=== PATIENT | male | born 1965 | race Caucasian/White ===

== ENCOUNTER → 2021-08-16 12:02 | Outpatient (BNVA) | payer OTHER, SELFPAY | PROVIDERS: PCP Family Medicine; Visit Provider Family Medicine | DX: F32.A Depression, unspecified (principal); K21.9 Gastro-esophageal reflux disease without esophagitis; E03.9 Hypothyroidism, unspecified; E11.9 Type 2 diabetes mellitus without complications | CPT/HCPCS: 80053; 80061; 83036; 84443; 85025 ==

== ENCOUNTER 2021-10-24 08:02 | Outpatient (CLI) | payer OTHER, SELFPAY ==
--- NOTE | 2021-10-24 08:45 | MR_ITS ---
WS: [id number] MRI CERVICAL SPINE NONCONTRAST HISTORY: Right-sided neck pain and spasm. Pain radiates to RIGHT shoulder. COMPARISON: Cervical radiograph 09/09/2021 Technique: Multiplanar, multisequence noncontrast imaging of the cervical spine. Mild straightening and slight reversal the normal cervical lordosis. C5 retrolisthesis by 2 mm. Disc spaces are very minimally desiccated and narrowed. No fracture or marrow edema. Craniocervical junction, C1 and C2 relationship, odontoid process and soft tissues are normal. C2-C3: Very shallow RIGHT paracentral disc protrusion. C3-C4: Normal. C4-C5: Very slight annular disc bulging with vertebral body osteophytes with mild encroachment upon t he ventral thecal sac. Mild RIGHT foraminal narrowing. Very tiny central disc protrusion. C5-C6: Diffuse annular disc bulging with a moderate LEFT paracentral disc osteophyte with contact and deformity in the LEFT lateral thecal sac and significant narrowing of the LEFT foramen. Small osteop hyte in the RIGHT foramen. C6-C7: Diffuse disc bulge with a central disc osteophyte protrusion. Mild central and bilateral cooper inal stenosis. C7-T1: Normal. Paraspinal soft tissue are normal. MR/MR cervical spin wo con* [id number] IMPRESSION: 1. Moderate LEFT paracentral disc osteophyte at C5-6 contacting the LEFT later al cervical cord with significant encroachment upon the LEFT C6 nerve root. 2. Mild RIGHT foraminal narrowing and small central disc protrusion at C4-5. 3. Very minimal encroachment upon the ventral thecal sac at C4-5 due to disc a nd osteophyte disease. 4. Central and bilateral foraminal disc osteophytes at C6-7 resulting in mild central and bilateral foraminal stenosis. Mild contact on the RIGHT C7 nerve ro ot.
== END 2021-10-24 08:03 | disposition home or self-care (01) ==
LOC: RAD 08:04
PROVIDERS: PCP Family Medicine; Visit Provider Nurse Practitioner Family
DX: M50.30 Other cervical disc degeneration, unspecified cervical region (principal); M25.78 Osteophyte, vertebrae
CPT/HCPCS: 72141

== ENCOUNTER → 2022-01-13 11:04 | Outpatient (BNVA) | payer OTHER, SELFPAY | PROVIDERS: PCP Family Medicine; Visit Provider Nurse Practitioner | DX: R31.9 Hematuria, unspecified (principal) | CPT/HCPCS: 80053; 85025; 87086 ==

== ENCOUNTER → 2023-07-09 12:06 | Outpatient (BNVA) | payer BC, SELFPAY | PROVIDERS: PCP Nurse Practitioner Family; Visit Provider Nurse Practitioner Family | DX: E78.5 Hyperlipidemia, unspecified (principal); E78.1 Pure hyperglyceridemia; E11.9 Type 2 diabetes mellitus without complications | CPT/HCPCS: 80053; 80061; 81003; 83036; 84443; 85025; G0103 ==

== ENCOUNTER 2023-08-02 07:47 | Outpatient (CLI) | payer BC, MEDICAID, SELFPAY ==
--- NOTE | 2023-08-02 08:45 | MR_ITS ---
WS: [id number] MRI RIGHT SHOULDER NONCONTRAST TECHNIQUE: Sagittal T2, coronal T1, T2 and proton density imaging. Axial gradient PDE imaging. CLINICAL INFORMATION: M19.019 - Primary osteoarthritis, unspecified shoulder COMPARISON: None. FINDINGS: Moderate degenerative arthritis AC joint with mild downsloping acromion. Synovial thickening with a s mall amount of fluid and edema. Subacromial spurring. Impingement distal supraspinatus. Mild narrowin g of the subacromial space. Normal infraspinatus. Normal teres minor. Tendinopathy with small intrasubstance tear involving the s ubscapularis distally. Mild medial subluxation of proximal biceps tendon from the bicipital groove. I ncreased signal intra-articular biceps tendon compatible with tendinopathy. Otherwise normal biceps t endon in the bicipital groove. Moderate to advanced degenerative narrowing of the glenohumeral articu lation with mild hypertrophic spurring. Degenerative fraying of the glenoid labrum. IMPRESSION: 1. Moderate to advanced degenerative arthritis AC joint with fluid and edema. Mild downsloping acrom ion with subacromial spurring. Impingement distal supraspinatus. 2. Mild chronic thinning of the supraspinatus. 3. Tendinopathy with intrasubstance tear involving the distal subscapularis. 4. Mild medial subluxation of the proximal biceps tendon with increased signal Intra-articular bicep s tendon compatible with tendinopathy. 5. Biceps tendon otherwise appears intact within the bicipital groove. 6. Moderate degenerative narrowing of the glenohumeral articulation.
--- NOTE | 2023-08-02 09:30 | MR_ITS ---
WS: [id number] MRI CERVICAL SPINE NONCONTRAST TECHNIQUE: Sagittal T1, T2 and STIR imaging. Axial T2, gradient, and fiesta imaging. CLINICAL INFORMATION: M50.30 - Other cervical disc degeneration, unspecified ce... COMPARISON: MRI 10/04/2021 FINDINGS: Straightening of the normal cervical lordosis. Mild disc bulging C5-C6 and C6-C7 worse at C6-C7. Cord signal appears normal. C2-C3: Mild facet arthropathy. Spinal canal and foramen are patent. C3-C4: No significant disc bulging. Mild facet arthropathy. Spinal canal and foramen are patent. C4-C5: Mild disc osteophyte complex with endplate ridging. Mild RIGHT and no significant LEFT foramin al narrowing. Uncovertebral joint hypertrophy. Mild facet arthropathy. C5-C6: Disc osteophyte complex with slight effacement of the ventral thecal sac. Slight contact of th e cervical cord. Severe LEFT and moderate RIGHT bony foraminal narrowing. Uncovertebral joint hypertr ophy. Mild facet arthropathy. Mild central canal stenosis is unchanged. C6-C7: Disc osteophyte complex with slight effacement of the ventral thecal sac. Moderate bilateral b aditya foraminal narrowing stable compared to previous. C7-T1: Mild disc osteophytic ridging. Spinal canal and foramen are patent. Visualized brain stem structures: Normal. Prevertebral soft tissues: Normal. IMPRESSION: 1. Overall no significant changes since 10/24/2021. 2. Small disc osteophyte protrusions C5-C6 and C6-C7 with slight contact of the cervical cord and mi ld central canal stenosis stable compared to previous. 3. Moderate to severe LEFT C5-C6 and moderate bilateral C6-7 bony foraminal narrowing stable compare d to previous.
== END 2023-08-02 07:48 | disposition home or self-care (01) ==
LOC: RAD 07:47
PROVIDERS: PCP Nurse Practitioner Family; Visit Provider Nurse Practitioner Family
DX: M50.30 Other cervical disc degeneration, unspecified cervical region (principal); M47.22 Other spondylosis with radiculopathy, cervical region; M25.78 Osteophyte, vertebrae; M48.02 Spinal stenosis, cervical region; M19.011 Primary osteoarthritis, right shoulder; M67.813 Other specified disorders of tendon, right shoulder
CPT/HCPCS: 72141; 73221

== ENCOUNTER → 2023-08-07 08:30 | Outpatient (BNVA) | payer BC, MEDICAID, SELFPAY | PROVIDERS: PCP Nurse Practitioner Family; Referring Provider Nurse Practitioner Family; Visit Provider Orthopaedic Surgery | DX: M54.2 Cervicalgia (principal); M47.12 Other spondylosis with myelopathy, cervical region; E11.9 Type 2 diabetes mellitus without complications; E78.2 Mixed hyperlipidemia; Z79.899 Other long term (current) drug therapy | CPT/HCPCS: 36415; 80053; 81003; 83036; 85025 ==

== ENCOUNTER 2023-08-22 05:31 | Day surgery (SDC) | payer BC, MEDICAID, SELFPAY ==
[2023-08-22] VITALS (9 sets, daily range): BP systolic 128–157; BP diastolic 64–106; PULSE 70–83; RESP 16–18; TEMP 36.1–36.6; O2SAT 91–97; BMI 27.1
--- NOTE | 2023-08-22 | XR_ITS ---
WS: [id number] EXAM: Intraoperative cervical spine. 3 intraoperative images been obtained with 18 seconds of fluoroscopy. The dap is 1.57. IMPRESSION: Images demonstrate plate and screw fixation at suspected levels C5-C7. There is limitation in evaluat ion of alignment. This can be performed on postop imaging Please see intraoperative note for full explanation of findings and the procedure.
[2023-08-22 06:25] LABS: Glucose Point of Care 144 mg/dL (70-110)
[2023-08-22] MEDS: sodium chloride 0.9% 1,000 ML 30 ML IV (06:32)
[2023-08-22] MEDS: scopolamine 1.5 Patch 1 PATCH TRANSDERMA (06:36)
--- NOTE | 2023-08-22 06:45 | W.PM.OPSUD ---
Surgery/Procedure H&P Update DATE OF PROCEDURE: August 22, 2023 DATE H&P PERFORMED: 08/17/23 H&P UPDATE INFORMATION: I have reviewed H&P completed within last 30 days, I have examined patient prior to procedure and No changes to prior documentation PREOP DIAGNOSIS: Cervical spondylosis with radiculopathy PLANNED PROCEDURE: Operation Date: 08/22/23 07:00 Proposed Procedures p Anterior Cervical Discectomy & Fusion ACDF w/ Anterior Interbody Fusion w/ Instrumentation w/ Allograft w/ Navigation(Not Applicable) - Kennedy Almazan DO
[2023-08-22] MEDS: ceFAZolin 2,000 MG in sodium chloride 0.9% (plus) 50 ML 100 MG IV (07:04)
--- NOTE | 2023-08-22 07:04 | ANES.PREANE2 ---
Pre-Anesthetic Assessment Height/Weight: Height 1.83 m Weight 90.718 kg Temp Pulse Resp BP Pulse Ox O2 Del Method 97.8 F 83 18 157/106 97 Room Air 08/22/23 06:20 08/22/23 06:20 08/22/23 06:20 08/22/23 06:20 08/22/23 06:20 08/22/23 06:20 Preop Diagnosis: Cervical spondylosis with radiculopathy Operation Date: 08/22/23 07:00 Proposed Procedures p Anterior Cervical Discectomy & Fusion ACDF w/ Anterior Interbody Fusion w/ Instrumentation w/ Allograft w/ Navigation(Not Applicable) - Kennedy Almazan, DO Familial anesthetic complications: None Was Beta Shellie taken within 24 hours: N/A Was Clonidine taken within 24 hours: N/A Last intake: Intake Last Liquid Date 08/21/23 Last Liquid Time 21:30 Last Solid Date 08/21/23 Last Solid Time 17:30 Social No alcohol and No tobacco Exam alert, oriented x 3, clear to auscultation bilaterally and regular rate & rhythm Airway Mallampati: Class II Dentition: full GI Gastroesophageal Reflux Disease Metabolic Diabetes Mellitus Anesthetic Plan ASA status: 2 Anesthesia: General Risk of > 500 ml blood loss (7ml/kg in children): No Medications/Allergies Home Medications Medication Instructions Recorded Confirmed Last Taken Type metformin 500 mg tablet 500 mg PO BID 90 days #180 tabs 07/13/23 08/21/23 08/21/23 Rx omeprazole 40 mg capsule,delayed See Rx Instructions .Route 07/13/23 08/21/23 08/21/23 Rx release .COMPLEX #90 caps hydrocodone 5 mg-acetaminophen 325 1 tab PO Q6H PRN pain 10 days #40 07/23/23 08/21/23 Unknown Rx mg tablet tabs Allergies Allergy/AdvReac Type Severity Reaction Status Date / Time No Known Allergies Allergy Verified 08/21/23 08:31 Current Medications Generic Name Dose Route Start Last Admin Trade Name Freq PRN Reason Stop Dose Admin Sodium Chloride 1,000 mls @ 30 mls/hr 08/22/23 06:00 08/22/23 06:32 Sodium Chloride 0.9% IV 08/23/23 05:59 30 mls/hr .Q24H CLIFF Administration PFSH Anesthesia Medical History DJD of AC (acromioclavicular) joint DDD (degenerative disc disease), cervical Shoulder pain Diabetes type 2, controlled Hypothyroid Gastro-esophageal reflux Depression Social History Smoking and tobacco/nicotine status: never used tobacco/nicotine Data Anesthesia Cardiac Studies: No Data to Display
[2023-08-22] MEDS: lidocaine-epi 1% 20 mL INJ INJECTION (07:53)
--- NOTE | 2023-08-22 09:23 | P.OP_ITS ---
Operative Report Date of procedure: August 22, 2023 Pre-op diagnosis: Cervical spondylosis with radiculopathy Post-op diagnosis: same Procedure done: 1. Anterior diskectomy C5/6 2. Anterior discectomy C6/7 3. Insertion of cage C5/6 4. Insertion of Cage C6/7 5. Instrumentation with anterior plate from C5-C7 6. Use of allograft Surgeon: Kennedy Almazan DO Estimated blood loss (mL): 25 Procedure: 1. Anterior diskectomy C5/6 2. Anterior discectomy C6/7 3. Insertion of cage C5/6 4. Insertion of Cage C6/7 5. Instrumentation with anterior plate from C5-C7 6. Use of allograft The patient was taken to the operating room, where he underwent general endotracheal anesthesia without complications. He was then positioned supine on the operating table, and all areas of impingement were well padded. The arms were carefully padded and tucked at his sides. A roll was placed between the shoulder blades.. An x-ray was done to determine the appropriate level for the skin incision. The entire neck was then sterilely prepped and draped in the usual fashion. Neuromonitoring was attached prior to prepping. A transverse skin incision was made and carried down to the platysma muscle. This was then split in line with its fibers. Blunt dissection was carried down medial to the carotid sheath and lateral to the trachea and esophagus until the anterior cervical spine was visualized. A needle was placed into a disc and an x-ray was done to determine its location. The longus colli muscles were then elevated bilaterally with the electrocautery unit. Self-retaining retractors were placed deep to the longus colli muscle. Attention was brought to the C5-6 level that was confirmed on x-ray. A caspar pin was placed into the C5 vertebrae and the C6 vertebrae. The disk space was then distracted. The microscope was then brought in. A radical anterior discectomies were performed at C5/6. This included complete removal of the anterior annulus, nucleus, and posterior annulus. The posterior longitudinal ligament was removed as were the posterior osteophytes. Foraminotomies were then accomplished bilaterally. This was done using a high speed alexandra, kerrison rongeurs and curretes Once all of this was accomplished, the curved currette was used to check for any residual compression. The central canal was wide open as were the foramen. A high-speed bur was used to remove the cartilaginous endplates above and below the interspace. Bleeding cancellous bone was exposed. The disc space were measured and appropriate size cage were placed sterilely onto the field. Allograft graft was packed into the cages. The cage was then placed and there was good juxtaposition against the bleeding decorticated surfaces and good distraction of each interspace. Attention was brought to the next interspace. The [place] pins were removed. Bone wax was used to prevent any bleeding from occurring at the pin sites. Attention was brought to the C6/7 level that was confirmed on x-ray. A caspar pin was placed into the C6 vertebrae and the C7 vertebrae. The disk space was then distracted. The microscope was then brought in. A radical anterior discectomies were performed at C6/7. This included complete removal of the anterior annulus, nucleus, and posterior annulus. The posterior longitudinal ligament was removed as were the posterior osteophytes. Foraminotomies were then accomplished bilaterally. This was done using a high speed alexandra, kerrison rongeurs and curretes Once all of this was accomplished, the curved currette was used to check for any residual compression. The central canal was wide open as were the foramen. A high-speed bur was used to remove the cartilaginous endplates above and below the interspace. Bleeding cancellous bone was exposed. The disc space were measured and appropriate size cage were placed sterilely onto the field. Allograft graft was packed into the cages. The cage was then placed and there was good juxtaposition against the bleeding decorticated surfaces and good distraction of each interspace. Attention was brought to the next interspace. The [place] pins were removed. Bone wax was used to prevent any bleeding from occurring at the pin sites. The appropriate size anterior cervical locking plate was chosen and bent into gentle lordosis. Two screws were then placed into each of the vertebral bodies at C5, C6 and C7. There was excellent purchase. A final x-ray was done confirming good position of the hardware and Cages. The locking screws were then applied, also with excellent purchase. Following a final copious irrigation, there was good hemostasis and no dural leaks. The carotid pulse was strong. The wounds were then closed in layers using 2-0 Vicryl suture for the platysma muscle, 2-0 Vicryl suture for the subcutaneous tissue, and 4-0 monocryl suture in a subcuticular skin closure. Glue was placed followed by application of a sterile dressing. The drain was hooked to bulb suction. A soft collar was applied. The patient was then carefully returned to the supine position on his hospital bed where he was reversed and extubated and taken to the recovery room having tolerated the procedure well.
--- NOTE | 2023-08-22 10:50 | ANE.PACU2 ---
Inpatient post-anesthesia follow up: Airway intact: Yes Vital signs: Temperature 97.1 F Pulse Rate 72 Respiratory Rate 16 Blood Pressure 140/66 Pulse Oximetry 93 Oxygen Delivery Me thod Room Air Oxygen Flow Rate 6 Fraction of Inspir ed Oxygen Hydration adequate: Yes Nausea and vomiting: No Pain level: 1 Mental status: Baseline
== END 2023-08-22 10:52 | disposition home or self-care (01) ==
PROVIDERS: PCP Nurse Practitioner Family; Visit Provider Orthopaedic Surgery
PROC: 0RB30ZZ Excision of Cervical Vertebral Disc, Open Approach (ICD-10-PCS; CPT 22551; principal; 2023-08-22 07:00)
DX: M47.22 Other spondylosis with radiculopathy, cervical region (principal); K21.9 Gastro-esophageal reflux disease without esophagitis; E11.9 Type 2 diabetes mellitus without complications; Z79.84 Long term (current) use of oral hypoglycemic drugs; E03.9 Hypothyroidism, unspecified; F32.A Depression, unspecified
CPT/HCPCS: 20930; 22551; 22552; 22845; 22853 ×2; 36416; 72040; 76000; 82962; C1763; J0330; J0690; J1100; J1170; J2250; J2405; J2704; J2710; J3010; J3490; J7030

== ENCOUNTER → 2023-10-02 09:09 | Outpatient (BNVA) | payer BC, MEDICAID, SELFPAY | PROVIDERS: PCP Nurse Practitioner Family; Visit Provider Orthopaedic Surgery | DX: Z98.1 Arthrodesis status (principal) | CPT/HCPCS: 72040 ==

== ENCOUNTER → 2023-11-08 08:37 | Outpatient (BNVA) | payer BC, MEDICAID, SELFPAY | PROVIDERS: PCP Nurse Practitioner Family; Visit Provider Orthopaedic Surgery | DX: Z98.1 Arthrodesis status (principal) | CPT/HCPCS: 72040 ==

== ENCOUNTER → 2024-02-21 07:47 | Outpatient (BNVA) | payer BC, MEDICAID, SELFPAY | PROVIDERS: PCP Nurse Practitioner Family; Visit Provider Orthopaedic Surgery | DX: Z98.1 Arthrodesis status (principal); M47.12 Other spondylosis with myelopathy, cervical region; M50.30 Other cervical disc degeneration, unspecified cervical region | CPT/HCPCS: 72040 ==

== ENCOUNTER → 2024-04-07 08:03 | Outpatient (BNVA) | payer BC, MEDICAID, SELFPAY | PROVIDERS: PCP Nurse Practitioner Family; Visit Provider Nurse Practitioner Family | DX: E78.5 Hyperlipidemia, unspecified (principal); M47.22 Other spondylosis with radiculopathy, cervical region; E11.9 Type 2 diabetes mellitus without complications | CPT/HCPCS: 80053; 80061; 83036; 85025 ==

== ENCOUNTER → 2024-08-21 09:51 | Outpatient (BNVA) | payer BC, MEDICAID, SELFPAY | PROVIDERS: PCP Nurse Practitioner Family; Visit Provider Orthopaedic Surgery | DX: Z98.1 Arthrodesis status (principal) | CPT/HCPCS: 72040 ==

== ENCOUNTER → 2025-01-22 16:00 | Outpatient (BNVA) | payer BC, MEDICAID, SELFPAY | PROVIDERS: PCP Nurse Practitioner Family; Visit Provider Nurse Practitioner Family | DX: E11.9 Type 2 diabetes mellitus without complications (principal); E78.2 Mixed hyperlipidemia; E78.1 Pure hyperglyceridemia | CPT/HCPCS: 80053; 80061; 83036; 83721 ==

== ENCOUNTER → 2025-04-10 12:37 | Outpatient (BNVA) | payer BC, MEDICAID, SELFPAY | PROVIDERS: PCP Nurse Practitioner Family; Visit Provider Nurse Practitioner Family | DX: M54.12 Radiculopathy, cervical region (principal); M43.22 Fusion of spine, cervical region; M25.411 Effusion, right shoulder | CPT/HCPCS: 72052; 73030 ==

== ENCOUNTER → 2025-04-23 08:15 | Outpatient (BNVA) | payer BC, MEDICAID, SELFPAY | PROVIDERS: PCP Nurse Practitioner Family; Visit Provider Nurse Practitioner Family | DX: E11.9 Type 2 diabetes mellitus without complications (principal); E78.2 Mixed hyperlipidemia; E03.9 Hypothyroidism, unspecified | CPT/HCPCS: 80053; 80061; 83036; 84439; 84443 ==